=== PATIENT | male | born 1955 | race Caucasian/White ===

== ENCOUNTER 2018-06-03 09:48 | Day surgery (SDC) | payer OTHER ==
[2018-06-01 16:19] VITALS: BMI 38.0
[~2018-06-03 09:48] MED LIST: LACTATED RINGERS 1,000 ML IV SCH
[2018-06-03] MEDS ORDERED: LIDOCAINE 1% 20 ML VIAL (10MG/ML) FOR IV START INTRADERMA ONE (10:21)
[2018-06-03] MEDS ORDERED: PROPOFOL 10 MG/ML 20 ML VIAL IV ONE (11:17)
--- NOTE | 2018-06-03 11:34 | P.PCN ---
Date of Procedure: 06/03/18 Procedure(s) Performed: BRIEF HISTORY: Patient is a 63-year-old pleasant, white male scheduled for an elective colonoscopy as a part of screening for colorectal neoplasia. He also has family history of colon cancer diagnosed in his mother at age 60. PROCEDURE PERFORMED: Colonoscopy. PREOPERATIVE DIAGNOSIS: Screening for colon cancer/family history of colon cancer. IV sedation per Anesthesia. PROCEDURE: After informed consent was obtained, the patient, was brought into the endoscopy unit. IV sedation was administered by Anesthesia under continuous monitoring. Digital rectal examination was normal. Initially the Olympus CF-160 flexible video colonoscope was then inserted in the rectum, gradually advanced into the cecum without any difficulty. Careful examination was performed as the scope was gradually being withdrawn. Ileocecal valve and the appendiceal orifice were visualized and appeared normal. Prep was excellent. Mucosa of the cecum, ascending colon, transverse colon, descending colon, sigmoid colon, and rectum appeared normal. Moderate sigmoidal diverticulosis seen. Retroflexion was performed in the rectum and no lesions were seen. The patient tolerated the procedure well. IMPRESSION: Normal-appearing colon from rectum to cecum with no evidence of colorectal neoplasia Moderate sigmoidal diverticulosis . RECOMMENDATIONS: Findings of this examination were discussed with the patient as well as his family. He was advised to have a repeat screening colonoscopy in 5 years because of the family history of colon cancer.
[2018-06-03 11:36] VITALS: RESP 16
[2018-06-03 11:52] VITALS: BP 122/80; PULSE 58
== END 2018-06-03 12:39 | disposition home or self-care (01) ==
LOC: ORWHC2ENDO 09:48
PROVIDERS: ATTEND Internal Medicine Gastroenterology
DX: Z12.11 Encounter for screening for malignant neoplasm of colon (principal); Z79.899 Other long term (current) drug therapy; K57.90 Diverticulosis of intestine, part unspecified, without perforation or abscess without bleeding; Z80.0 Family history of malignant neoplasm of digestive organs
CPT/HCPCS: G0121; J2704; 45378

== ENCOUNTER 2020-09-02 07:37 | Emergency (ER) | payer OTHER ==
[2020-09-02 07:51] VITALS: RESP 18; TEMP 98.3
[2020-09-02] MEDS ORDERED: MORPHINE SULFATE 4 MG/ML SYRINGE IV STA (08:18)
[2020-09-02] MEDS ORDERED: ONDANSETRON 4 MG/2 ML VIAL IVP STA (08:18)
[2020-09-02] MEDS ORDERED: SODIUM CHLORIDE 0.9% 1,000 ML IV STA (08:18)
--- NOTE | 2020-09-02 08:54 | ED ---
General Adult HPI - General Chief complaint: Abdominal Pain Stated complaint: right side pain Time Seen by Provider: 09/02/20 08:01 Source: patient, RN notes reviewed Mode of arrival: ambulatory Limitations: no limitations - History of Present Illness Initial comments: 85-year-old male with a past medical history of GERD presents to the emergency room for chief complaint of right-sided abdominal pain. Patient states it started around 10:00 last night. States he did have some loose stool that time and thought it could be his intestines. Patient reports it persisted to today and he was unable to eat his breakfast because of his nausea. Patient states it is the right lower abdomen that radiates to the lower back. Patient denies fevers. Denies abdominal surgeries. Patient has been passing gas. Patient has no other complaints at this time including shortness of breath, chest pain, headache, or visual changes. - Related Data Home Medications Medication Instructions Recorded Confirmed Triamterene-Hctz 37.5-25Mg 1 cap PO DAILY 06/01/18 09/02/20 [Dyazide 37.5-25 Capsule] Aspirin EC [Ecotrin Low Dose] 81 mg PO DAILY 09/02/20 09/02/20 Allergies Allergy/AdvReac Type Severity Reaction Status Date / Time No Known Allergies Allergy Verified 09/02/20 08:45 Review of Systems ROS Statement: Those systems with pertinent positive or pertinent negative responses have been documented in the HPI. ROS Other: All systems not noted in ROS Statement are negative. Past Medical History Past Medical History: GERD/Reflux Additional Past Medical History / Comment(s): ear issues History of Any Multi-Drug Resistant Organisms: None Reported Past Surgical History: Ear Surgery Additional Past Surgical History / Comment(s): Left ear surgery X2. Past Anesthesia/Blood Transfusion Reactions: No Reported Reaction Past Psychological History: No Psychological Hx Reported Smoking Status: Never smoker Past Alcohol Use History: None Reported Past Drug Use History: None Reported - Past Family History Mother Family Medical History: Cancer Additional Family Medical History / Comment(s): Colon cancer. General Exam Limitations: no limitations General appearance: alert, in no apparent distress Head exam: Present: atraumatic, normocephalic, normal inspection Eye exam: Present: normal appearance, PERRL, EOMI. Absent: scleral icterus, conjunctival injection, periorbital swelling ENT exam: Present: normal exam, mucous membranes moist Neck exam: Present: normal inspection, full ROM. Absent: tenderness, meningismus, lymphadenopathy Respiratory exam: Present: normal lung sounds bilaterally. Absent: respiratory distress, wheezes, rales, rhonchi, stridor Cardiovascular Exam: Present: regular rate, normal rhythm, normal heart sounds. Absent: systolic murmur, diastolic murmur, rubs, gallop, clicks GI/Abdominal exam: Present: soft, tenderness (mild RLQ tenderness, no guarding or rebound), normal bowel sounds. Absent: distended, guarding, rebound, rigid Course Vital Signs 09/02/20 09/02/20 09/02/20 07:49 08:51 09:51 Temperature 98.3 F Pulse Rate 65 Respiratory 18 18 18 Rate Blood Pressure 187/93 O2 Sat by Pulse 98 Oximetry 09/02/20 10:00 Temperature Pulse Rate 66 Respiratory 18 Rate Blood Pressure 176/79 O2 Sat by Pulse 96 Oximetry Medical Decision Making - Medical Decision Making Vitals are stable. Patient is well-appearing. Patient has some mild mid right abdominal tenderness. Negative Eugene sign. CBC unremarkable. CMP does show hyperglycemia. Patient has an appointment with his primary care doctor for blood work coming up. Urinalysis shows 4+ glucose with trace ketones. CT abdomen and pelvis shows a partially exophytic 9.5 cm thin walled cyst of her pole right kidney with local mass effect. Likely the cause of patient's symptoms. There is also gallstones without secondary CT evidence to suggest acute cholecystitis. No fevers. No transaminitis or abnormal abdominal labs. Negative Eugene's sign. At this time patient is stable for outpatient follow-up with neurology for kidney cyst as well as surgery for gallstone. However if he starts to develop worsening pain, postprandial pain, or fever to return to the emergency room. I discussed this case with attending Dr. Varghese who agrees with this assessment and treatment plan. - Lab Data Result diagrams: 09/02/20 08:45 09/02/20 08:45 Lab Results 09/02/20 09/02/20 09/02/20 Range/Units 08:45 08:45 08:45 WBC 10.3 (3.8-10.6) k/uL RBC 5.35 (4.30-5.90) m/uL Hgb 16.2 (13.0-17.5) gm/dL Hct 46.8 (39.0-53.0) % MCV 87.5 (80.0-100.0) fL MCH 30.3 (25.0-35.0) pg MCHC 34.7 (31.0-37.0) g/dL RDW 12.2 (11.5-15.5) % Plt Count 180 (150-450) k/uL MPV 8.2 Neutrophils % 85 % Lymphocytes % 9 % Monocytes % 5 % Eosinophils % 0 % Basophils % 0 % Neutrophils # 8.8 H (1.3-7.7) k/uL Lymphocytes # 1.0 (1.0-4.8) k/uL Monocytes # 0.5 (0-1.0) k/uL Eosinophils # 0.0 (0-0.7) k/uL Basophils # 0.0 (0-0.2) k/uL Sodium 133 L (137-145) mmol/L Potassium 4.3 (3.5-5.1) mmol/L Chloride 100 (98-107) mmol/L Carbon Dioxide 24 (22-30) mmol/L Anion Gap 9 mmol/L BUN 16 (9-20) mg/dL Creatinine 0.66 (0.66-1.25) mg/dL Est GFR (CKD-EPI)AfAm >90 (>60 ml/min/1.73 sqM) Est GFR (CKD-EPI)NonAf >90 (>60 ml/min/1.73 sqM) Glucose 300 H (74-99) mg/dL Plasma Lactic Acid Gurmeet (0.7-2.0) mmol/L Calcium 9.6 (8.4-10.2) mg/dL Total Bilirubin 0.6 (0.2-1.3) mg/dL AST 21 (17-59) U/L ALT 22 (4-49) U/L Alkaline Phosphatase 68 (38-126) U/L Total Protein 6.5 (6.3-8.2) g/dL Albumin 4.0 (3.5-5.0) g/dL Amylase 37 (30-110) U/L Lipase 54 (23-300) U/L Urine Color Light Yellow Urine Appearance Clear (Clear) Urine pH 7.0 (5.0-8.0) Ur Specific Gould 1.023 (1.001-1.035) Urine Protein Negative (Negative) Urine Glucose (UA) 4+ H (Negative) Urine Ketones Trace H (Negative) Urine Blood Negative (Negative) Urine Nitrite Negative (Negative) Urine Bilirubin Negative (Negative) Urine Urobilinogen <2.0 (<2.0) mg/dL Ur Leukocyte Esterase Negative (Negative) 09/02/20 Range/Units 08:45 WBC (3.8-10.6) k/uL RBC (4.30-5.90) m/uL Hgb (13.0-17.5) gm/dL Hct (39.0-53.0) % MCV (80.0-100.0) fL MCH (25.0-35.0) pg MCHC (31.0-37.0) g/dL RDW (11.5-15.5) % Plt Count (150-450) k/uL MPV Neutrophils % % Lymphocytes % % Monocytes % % Eosinophils % % Basophils % % Neutrophils # (1.3-7.7) k/uL Lymphocytes # (1.0-4.8) k/uL Monocytes # (0-1.0) k/uL Eosinophils # (0-0.7) k/uL Basophils # (0-0.2) k/uL Sodium (137-145) mmol/L Potassium (3.5-5.1) mmol/L Chloride (98-107) mmol/L Carbon Dioxide (22-30) mmol/L Anion Gap mmol/L BUN (9-20) mg/dL Creatinine (0.66-1.25) mg/dL Est GFR (CKD-EPI)AfAm (>60 ml/min/1.73 sqM) Est GFR (CKD-EPI)NonAf (>60 ml/min/1.73 sqM) Glucose (74-99) mg/dL Plasma Lactic Acid Gurmeet 2.0 (0.7-2.0) mmol/L Calcium (8.4-10.2) mg/dL Total Bilirubin (0.2-1.3) mg/dL AST (17-59) U/L ALT (4-49) U/L Alkaline Phosphatase (38-126) U/L Total Protein (6.3-8.2) g/dL Albumin (3.5-5.0) g/dL Amylase (30-110) U/L Lipase (23-300) U/L Urine Color Urine Appearance (Clear) Urine pH (5.0-8.0) Ur Specific Gould (1.001-1.035) Urine Protein (Negative) Urine Glucose (UA) (Negative) Urine Ketones (Negative) Urine Blood (Negative) Urine Nitrite (Negative) Urine Bilirubin (Negative) Urine Urobilinogen (<2.0) mg/dL Ur Leukocyte Esterase (Negative) Disposition Clinical Impression: Abdominal pain, Hyperglycemia, Renal cyst, Gallstone Disposition: HOME SELF-CARE Condition: Good Instructions (If sedation given, give patient instructions): Abdominal Pain (ED) Additional Instructions: Please take Motrin and Tylenol 3 for pain. Follow-up with primary care to discuss your high sugar levels as well as surgery and urology. Return to the emergency room for any worsening symptoms including worsening abdominal pain, worsening vomiting, fevers. Is patient prescribed a controlled substance at d/c from ED?: No Referrals: Abel Reis DO [Primary Care Provider] - 1-2 days Haris Corral MD [STAFF PHYSICIAN] - 1-2 days Mitchell Aly MD [STAFF PHYSICIAN] - 1-2 days Time of Disposition: 10:45
[2020-09-02 09:14] LABS: Appearance,Urine Clear (Clear); Bilirubin,Urine Negative (Negative); Blood,Urine Negative (Negative); Color,Urine Light Yellow; Glucose,Urine (UA) 4+ (Negative); Ketones,Urine Trace (Negative); Leukocyte Esterase,Urine Negative (Negative); Nitrite,Urine Negative (Negative); Protein,Urine Negative (Negative); Specific Gravity,Urine 1.023 (1.001-1.035); Urobilinogen,Urine <2.0 mg/dL (<2.0)
[2020-09-02 09:38] LABS: ALT 22 U/L (4-49); AST 21 U/L (17-59); African American GFR (CKD) >90 (>60 ml/min/1.73 sqM); Alkaline Phosphatase 68 U/L (38-126); Amylase 37 U/L (30-110); Anion Gap 9 mmol/L; Blood Urea Nitrogen 16 mg/dL (9-20); Calcium 9.6 mg/dL (8.4-10.2); Carbon Dioxide 24 mmol/L (22-30); Chloride 100 mmol/L (98-107); Glucose 300 mg/dL (74-99); Lipase 54 U/L (23-300); Non-African American GFR(CKD) >90 (>60 ml/min/1.73 sqM); Potassium 4.3 mmol/L (3.5-5.1); Sodium 133 mmol/L (137-145); Total Bilirubin 0.6 mg/dL (0.2-1.3); Total Protein 6.5 g/dL (6.3-8.2)
[2020-09-02 09:46] LABS: Basophils % (A) 0 %; Eosinophils % (A) 0 %; HCT 46.8 % (39.0-53.0); HGB 16.2 gm/dL (13.0-17.5); Lymphocytes % (A) 9 %; MCH 30.3 pg (25.0-35.0); MCHC 34.7 g/dL (31.0-37.0); MCV 87.5 fL (80.0-100.0); Mean Platelet Volume 8.2; Monocytes # (A) 0.5 k/uL (0-1.0); Monocytes % (A) 5 %; Neutrophils # (A) 8.8 k/uL (1.3-7.7); Neutrophils % (A) 85 %; Platelet Count 180 k/uL (150-450); RBC 5.35 m/uL (4.30-5.90); RDW 12.2 % (11.5-15.5); WBC 10.3 k/uL (3.8-10.6)
--- NOTE | 2020-09-02 10:01 | CT ---
EXAMINATION TYPE: CT abdomen pelvis w con DATE OF EXAM: 09/02/2020 COMPARISON: None. HISTORY: RLQ pain CT DLP: 2440.3 mGycm, Automated Exposure Control for Dose Reduction was Utilized. CONTRAST: CT scan of the abdomen and pelvis is performed without oral and with IV Contrast, patient injected wi th 100 ml mL of Isovue 300. FINDINGS: LUNG BASES: No significant abnormality is appreciated. LIVER/GB: Low dense intraluminal gallstones with additional low dense rim calcified 1.8 cm dependent gallstone in gallbladder neck. Some distended margins of the gallbladder without surrounding inflamma tory change. Liver diffusely low dense consistent with fatty infiltration. No biliary dilatation. PANCREAS: No significant abnormality is seen. SPLEEN: No significant abnormality is seen. ADRENALS: No significant abnormality is seen. KIDNEYS: Symmetric cortical medullary uptake and excretion without hydronephrosis seen bilaterally. T here is partially exophytic 9.5 x 8.5 x 8.6 cm thin-walled cyst from the upper pole right kidney. BOWEL: Prominent sigmoid colonic diverticulosis without CT evidence for acute diverticulitis. No susp icious small or large bowel dilatation. Suboptimal evaluation of bowel without enteric contrast. Mild wall thickening in the poorly distended terminal ileum without surrounding fat stranding. Appendix n ot seen with certainty but no significant fat stranding at the base of cecum. Likely portion of trae l appendix seen coronal image 53 along medial aspect of cecum. PROSTATE/SEMINAL VESICLES: Some posterior calcifications. Normal size prostate. LYMPH NODES: No greater than 1cm abdominal or pelvic lymph nodes are appreciated. OSSEOUS STRUCTURES: Bilateral pars defect L5 level. Grade 1 anterolisthesis L5 on S1. Vacuum disc phe nomenon with moderate disc space narrowing at this level. Vacuum disc phenomenon with mild disc space narrowing L4-L5 level. OTHER: No significant additional abnormality is seen. IMPRESSION: No convincing CT evidence for acute appendicitis. No bowel obstruction. Gallstones witho ut secondary CT evidence to suggest acute cholecystitis. Prominent sigmoid colonic diverticulosis wit hout convincing CT evidence for acute diverticulitis. Partially exophytic 9.5 cm thin-walled cyst upper pole right kidney with local mass effect.
[2020-09-02 10:17] VITALS: BP 176/79; PULSE 66
== END 2020-09-02 10:58 | disposition home or self-care (01) ==
LOC: EC 07:37
DX: R73.9 Hyperglycemia, unspecified (principal); N28.1 Cyst of kidney, acquired; K80.20 Calculus of gallbladder without cholecystitis without obstruction; K57.30 Diverticulosis of large intestine without perforation or abscess without bleeding; R82.4 Acetonuria; Z79.82 Long term (current) use of aspirin
CPT/HCPCS: 96374; 96375; 96361; 99284; 36415; 80053; 82150; 83605; 83690; 85025; 81003; 74177; J2270; J2405; Q9967

== ENCOUNTER 2020-10-07 07:25 | Day surgery (SDC) | payer OTHER ==
[2020-10-04 09:58] VITALS: BMI 38.0
[~2020-10-07 07:25] MED LIST changes: +ACETAMINOPHEN TAB 500 MG TAB PO PRN; +DEXAMETHASONE SOD PHOSPHATE 4 MG/ML 1 ML VIAL IV ONE; +HEPARIN SODIUM,PORCINE/PF 5,000 UNIT/0.5 ML SYRINGE SQ PRN; +HYDROmorphone 0.5 MG/0.5 ML SYRINGE IVP PRN; +ONDANSETRON 4 MG/2 ML VIAL IVP ONE; +ceFAZolin 3 GM in SODIUM CHLORIDE 0.9% 100 ML IVPB PRN
[2020-10-07] MEDS ORDERED: LIDOCAINE 1% (10MG/ML) FOR IV START INTRADERMA ONE (08:03)
[2020-10-07] MEDS ORDERED: HEPARIN SODIUM,PORCINE/PF 5,000 UNIT/0.5 ML SYRINGE SQ ONE (08:10)
[2020-10-07] MEDS ORDERED: ACETAMINOPHEN TAB 500 MG TAB ONE (08:10)
--- NOTE | 2020-10-07 08:28 | P.GSHP ---
History of Present Illness H&P Date: 10/07/20 Chief Complaint: Right upper quadrant pain Is a 65-year-old male who presents today for laparoscopic cholecystectomy. He's had completed her oral pain. His ultrasound shows evidence of cholelithiasis. Past Medical History Past Medical History: GERD/Reflux, Skin Disorder Additional Past Medical History / Comment(s): occ migraines, gallstones, psoriasis, cyst rt kidney-benign History of Any Multi-Drug Resistant Organisms: None Reported Past Surgical History: Ear Surgery Additional Past Surgical History / Comment(s): Left ear surgery X2. Past Anesthesia/Blood Transfusion Reactions: No Reported Reaction Smoking Status: Former smoker - Past Family History Mother Family Medical History: Cancer Additional Family Medical History / Comment(s): Colon cancer. Medications and Allergies Home Medications Medication Instructions Recorded Confirmed Type Triamterene-Hctz 37.5-25Mg 1 cap PO DAILY 06/01/18 10/07/20 History [Dyazide 37.5-25 Capsule] Aspirin EC [Ecotrin Low Dose] 81 mg PO DAILY 09/02/20 10/07/20 History Allergies Allergy/AdvReac Type Severity Reaction Status Date / Time No Known Allergies Allergy Verified 10/07/20 08:01 Surgical - Exam Vital Signs Temp Pulse Resp BP Pulse Ox 97.5 F L 56 L 16 167/76 96 10/07/20 07:59 10/07/20 07:59 10/07/20 07:59 10/07/20 07:59 10/07/20 07:59 - General well developed, well nourished, no distress - Eyes PERRL - ENT normal pinna - Neck no masses - Respiratory normal expansion - Cardiovascular Rhythm: regular - Abdomen Abdomen: soft, non tender Assessment and Plan Assessment: Right upper quadrant pain Cholelithiasis We'll perform laparoscopic cholecystectomy
[2020-10-07] MEDS ORDERED: ROCURONIUM 10 MG/ML (5 ML VIAL) IV ONE (08:50)
[2020-10-07] MEDS ORDERED: NEOSTIGMINE 1 MG/ML 10 ML VIAL ONE (08:50)
[2020-10-07] MEDS ORDERED: GLYCOPYRROLATE 0.2 MG/ML 2 ML VIAL ONE (08:50)
[2020-10-07] MEDS ORDERED: PROPOFOL 10 MG/ML 20 ML VIAL IV ONE (08:50)
[2020-10-07] MEDS ORDERED: LIDOCAINE 1% INJ 10MG/ML (20 ML MDV) ONE (08:50)
[2020-10-07] MEDS ORDERED: SUCCINYLCHOLINE CHLORIDE 100 MG/5 ML SYR IV ONE (08:50)
[2020-10-07] MEDS ORDERED: KETOROLAC 15 MG/ML 1 ML VIAL ONE (08:50)
[2020-10-07] MEDS ORDERED: fentaNYL (PF) 50 MCG/ML 2 ML AMP ONE (08:50)
[2020-10-07] MEDS ORDERED: MIDAZOLAM 2 MG/2 ML VIAL ONE (08:50)
[2020-10-07] MEDS ORDERED: KETAMINE 10 MG/ML 20 ML VIAL ONE (08:50)
[2020-10-07] MEDS ORDERED: BUPIVACAINE (PF) 0.5% 30 ML VIAL SQ ONE (09:12)
[2020-10-07 09:43] VITALS: TEMP 96.8
--- NOTE | 2020-10-07 09:43 | P.OP ---
Date of Procedure: 10/07/20 Preoperative Diagnosis: Cholelithiasis Postoperative Diagnosis: Cholelithiasis Procedure(s) Performed: Laparoscopic cholecystectomy Anesthesia: JEANINE Surgeon: Haris Corral Estimated Blood Loss (ml): 5 Pathology: other (Gallbladder) Condition: stable Disposition: PACU Description of Procedure: The patient was placed on the operating table. The patient received a general endotracheal tube anesthesia. The patients abdomen was prepped and draped in the usual sterile fashion. Through an infraumbilical stab incision, the fascia of the anterior abdominal wall was grasped with a pair of Kochers and then the Veress needle was placed in the peritoneal cavity. Position of the Veress needle was confirmed with positive drop test. The abdomen was then insufflated. After adequate insufflation, the 10 mm trocar was placed in the peritoneal cavity. Following this the laparoscope was placed in the peritoneal cavity. The patient was placed in the head-up, right side up position and then a 5 mm trocar was placed in the right lateral and right subcostal position under direct visualization. A 8 mm trocar was placed in the epigastric position. The gallbladder was grasped in the fundus and infundibulum. Traction on the gallbladder was placed in the lateral and the cephalad positions. The triangle of Calot was visualized.. The cystic duct was bluntly dissected until the union of the cystic duct and common bile duct was seen. A critical view of safety was achieved. The cystic duct was then divided and sealed with the Harmonic scissors. A PDS Endoloop was then placed throughout the cystic duct stump. The cystic artery divided and sealed with the Harmonic scissors. The gallbladder was then removed from the liver bed using Harmonic scissors. The gallbladder was then extracted through the epigastric port site. Operative field was checked for any bleeding spots and Harmonic scissors was used to coagulate the liver bed. The abdomen was irrigated. The trocars were removed. The skin was closed using interrupted 3-0 Vicryl suture. Dermabond dressing were applied. The patient tolerated the procedure well.
[2020-10-07 09:53] VITALS: RESP 16
[2020-10-07 11:14] VITALS: BP 145/83; PULSE 47
== END 2020-10-07 11:23 | disposition home or self-care (01) ==
LOC: OR 07:25
PROVIDERS: ATTEND Surgery
DX: K80.10 Calculus of gallbladder with chronic cholecystitis without obstruction (principal); K21.9 Gastro-esophageal reflux disease without esophagitis; L40.9 Psoriasis, unspecified; N28.1 Cyst of kidney, acquired; Z98.890 Other specified postprocedural states; Z87.891 Personal history of nicotine dependence; Z80.0 Family history of malignant neoplasm of digestive organs; Z79.899 Other long term (current) drug therapy
CPT/HCPCS: 88304; 47562; J2250; J2710; J0690; J2405; J2001; J3010; J1885; J0330; J2704; J1644

== ENCOUNTER 2024-03-08 10:12 | Day surgery (SDC) | payer BC, MEDICARE ==
[2024-03-08 11:03] VITALS: TEMP 97.9
[2024-03-08] MEDS: IV FLUID CONTINUATION 1,000 ML IV ONE (11:06)
[2024-03-08] MEDS: LACTATED RINGERS 1,000 ML IV SCH (11:12)
[2024-03-08 11:13] LABS: Glucose,Whole Blood 108 mg/dL (70-110)
[2024-03-08] MEDS ORDERED: PROPOFOL 10 MG/ML 20 ML VIAL IV ONE (12:19)
--- NOTE | 2024-03-08 12:34 | P.PCN ---
Date of Procedure: 03/08/24 Procedure(s) Performed: BRIEF HISTORY: Patient is a 69-year-old pleasant white male scheduled for an elective colonoscopy as a part of valuation by history of colon polyps. His mother was diagnosed with colon cancer at age 60. PROCEDURE PERFORMED: Colonoscopy. PREOPERATIVE DIAGNOSIS: History of colon polyps and family history of colon cancer. IV sedation per Anesthesia. PROCEDURE: After informed consent was obtained, the patient, was brought into the endoscopy unit. IV sedation was administered by Anesthesia under continuous monitoring. Digital rectal examination was normal. Initially the Olympus CF-160 flexible video colonoscope was then inserted in the rectum, gradually advanced into the cecum without any difficulty. Careful examination was performed as the scope was gradually being withdrawn. Ileocecal valve and the appendiceal orifice were visualized and appeared normal. Prep was excellent. Mucosa of the cecum, ascending colon, transverse colon, descending colon, sigmoid colon, and rectum appeared normal. Sigmoid diverticulosis. Retroflexion was performed in the rectum and no lesions were seen. The patient tolerated the procedure well. IMPRESSION: Normal-appearing colon from rectum to cecum with no evidence of colorectal neoplasia. Sigmoid diverticulosis. RECOMMENDATIONS: Findings of this examination were discussed with the patient as well as his family. He was advised to have repeat colonoscopy in 5 years because of the family history of colon cancer.
[2024-03-08 12:45] VITALS: BP 101/65
[2024-03-08 12:55] VITALS: PULSE 52; RESP 16
== END 2024-03-08 13:16 | disposition home or self-care (01) ==
LOC: ORWHC2ENDO 10:12
PROVIDERS: ATTEND Internal Medicine Gastroenterology
DX: Z12.11 Encounter for screening for malignant neoplasm of colon (principal); K57.30 Diverticulosis of large intestine without perforation or abscess without bleeding; I10 Essential (primary) hypertension; E11.9 Type 2 diabetes mellitus without complications; G43.909 Migraine, unspecified, not intractable, without status migrainosus; L40.9 Psoriasis, unspecified; K21.9 Gastro-esophageal reflux disease without esophagitis; Z79.84 Long term (current) use of oral hypoglycemic drugs; Z79.82 Long term (current) use of aspirin; Z79.899 Other long term (current) drug therapy; Z80.0 Family history of malignant neoplasm of digestive organs; Z86.0100 Personal history of colon polyps, unspecified
CPT/HCPCS: J2704; G0121; 45378